=== PATIENT | female | born 1940 | race Caucasian/White ===

== ENCOUNTER 2017-01-08 12:45 | Emergency (ER) | payer MEDICARE, OTHER ==
[2017-01-08 13:13] LABS: BASOPHILS 0.7 % (0.0-2.0); EOSINOPHILS 2.1 % (0.0-6.0); EOSINOPHILS# 0.1 X 10^3uL (0.0-0.4); HEMATOCRIT 45.7 % (36.0-48.0); HEMOGLOBIN 15.9 g/dL (12.0-16.0); LYMPHOCYTES# 1.4 X 10^3uL (0.8-3.8); MEAN CELL VOLUME 89.9 fL (80.0-100.0); MEAN CORPUS. HGB CONCENTRATION 34.9 g/dL (32.0-36.0); MEAN CORPUSCULAR HEMOGLOBIN 31.4 pg (29.0-35.0); MEAN PLATELET VOLUME 8.4 fL (7.4-10.4); MONOCYTES 8.7 % (2.0-10.0); MONOCYTES# 0.5 X 10^3uL (0.2-1.0); NEUTROPHILS 64.5 % (54.0-75.0); NEUTROPHILS# 3.9 X 10^3uL (2.6-6.7); PLATELET COUNT 274 X 10^3uL (130-440); RED BLOOD COUNT 5.08 X 10^6uL (4.20-6.10); RED CELL DISTRIBUTION WIDTH 11.7 % (11.5-14.5); WHITE BLOOD COUNT 5.9 X 10^3uL (3.9-10.7)
[2017-01-08 13:24] LABS: BLOOD UREA NITROGEN 21 mg/dL (7-17); CALCIUM 9.2 mg/dL (8.4-10.2); CHLORIDE 105 mmol/L (98-107); EST GLOMERULAR FILTRATION RATE > 60 mL/min; GLUCOSE 100 mg/dL (70-100); INR 1.9; POTASSIUM 4.1 mmol/L (3.5-5.1); SODIUM 143 mmol/L (137-145)
[2017-01-08 13:49] LABS: TROPONIN I < 0.012 ng/mL (0.00-0.034)
--- NOTE | 2017-01-08 14:31 | ER PHYSICIAN DOCUMENTATION ---
Physician Documentation [facility] Name:Beverly Hardy Age:76 yrs Sex:Female :1940 Arrival Date:01/08/2017 Time:12:45 BedTrauma-C Private MD:Brea Avila ED Pawan Hicks Disposition: 01/08 15:00 Chart complete. tl1 Disposition: 01/08/17 14:22 Discharged to Home/Self Care. Impression: Non-Cardiac Chest Pain. - Condition is Good. - Discharge Instructions: CHEST PAIN, Uncertain Cause. - Medical Reconciliation form form. - Follow up: Brea Avila MD; When: 4- 6 days; Reason: Recheck today's complaints, Continuance of care. - Problem is new. - Symptoms have improved. HPI: 13:00 This 76 yrs old Female presents to ER via Private Vehicle with complaints of tl1 Back Pain. 13:00 The patient presents with pain that is acute. tl1 13:51 She was fine until an hour [employer] when she developed the abrupt onset of a sharp pain in tl1 the left lower scapular area of her chest that was not pleuritic and did not radiate. This lasted about 15 minutes and resolved, but it was bad enough that it concerned her enough to come to the ED. On arrival here she was pain free, though she still had a very vague sense of some kind of residual discomfort that she found very hard to describe. She denied f/c/s. No cough or hemoptysis. No recent trauma or injury. No urinary symptoms. No change in the pain when she moves her neck. No n/v or diaphoresis.. Historical: - Allergies: No known drug Allergies; - Home Meds: 1. Coumadin Oral - Tetanus: < 10 years. - Ebola Screening: : Patient negative for fever greater than or equal to 101.5 degrees Fahrenheit, and additional compatible Ebola Virus Disease symptoms. Patient denies exposure to infectious person. Patient denies travel to an Ebola-affected area in the 21 days before illness onset. No symptoms or risks identified at this time. . - Immunization history: Flu Vaccine Flu Vaccine < 1 year. - Social history: Smoking status: Smoking status: Patient states was never smoker of tobacco. ROS: 13:20 Back: Positive for pain at rest, pain with movement. tl1 13:20 All other systems are negative. Exam: 13:20 Constitutional: This is a well developed, well nourished patient who is awake, alert, tl1 and in no acute distress. Head/Face: Normocephalic, atraumatic. Eyes: Pupils equal round and reactive to light, extra-ocular motions intact. Lids and lashes normal. Conjunctiva and sclera are non-icteric and not injected. Cornea within normal limits. Periorbital areas with no swelling, redness, or edema. ENT: Nares patent. No nasal discharge, no septal abnormalities noted. Tympanic membranes are normal and external auditory canals are clear. Oropharynx with no redness, swelling, or masses, exudates, or evidence of obstruction, uvula midline. Mucous membranes moist. 13:20 Neck: Trachea midline, no thyromegaly or masses palpated, and no cervical tl1 lymphadenopathy. Supple, full range of motion without nuchal rigidity, or vertebral point tenderness. No Meningismus. 13:20 Chest/axilla: Inspection: normal, Palpation: tenderness, that is mild, of the right lateral posterior chest, that does not reproduce the patient's complaints. 13:20 Cardiovascular: Rate: normal, Rhythm: regular, Heart sounds: normal, Edema: is not appreciated, JVD: is not appreciated. 13:20 Respiratory: Respirations: normal, Breath sounds: are normal. 13:20 Abdomen/GI: Palpation: abdomen is soft and non-tender. 13:20 Back: pain, is absent, ROM is normal, vertebral tenderness, is not appreciated, muscle spasm, is not present. 13:20 Skin: Exam negative for 13:20 Skin: Exam negative for rash. 13:20 Neuro: Exam negative for acute changes. Vital Signs: 12:50 BP 153 / 56; Pulse 59; Resp 20; Temp 98.7; Pulse Ox 97% on R/A; Pain 6/10; rh 13:46 BP 114 / 61 (auto/); rh 13:46 Pulse 56 MON; Resp 17; Pulse Ox 92% ; rh 14:24 BP 105 / 56; Pulse 56; Resp 16; Pulse Ox 92% on R/A; Pain 0/10; rh MDM: 12:47 Patient medically screened. tl1 13:05 ECG:. tl1 14:30 Data reviewed: vital signs, nurses notes, old medical records, lab test result(s), EKG, tl1 radiologic studies, plain films, and as a result, I will discharge patient. Test interpretation: by ED physician or midlevel provider: plain radiologic studies, ECG. Counseling: I had a detailed discussion with the patient and/or guardian regarding: the historical points, exam findings, and any diagnostic results supporting the discharge/admit diagnosis, lab results, radiology results, the need for outpatient follow up, to return to the emergency department if symptoms worsen or persist or if there are any questions or concerns that arise at home. Response to treatment: There is no appreciated change of the patient's symptoms at this time, no change in mental status, and as a result, I will discharge patient. ED course: The cause of this pain is obscure, but does not appear to be due to a worrisome emergency medical condition at this time. 15:09 EKG attached 01/08 13:19 Order name: CBC AUTO DIF, MDIF/RMOR IF IND; Complete Time: 14: [facility] 01/08 14:21 Interpretation: Normal: WHITE BLOOD COUNT 5.9; HEMOGLOBIN 15.9; HEMATOCRIT 45.7; tl1 PLATELET COUNT 274. 01/08 13:25 Order name: PROTIME/INR; Complete Time: 14:22 [facility] 01/08 14:21 Interpretation: Abnormal: PROTIME 24.0; INR 1.9. [facility] 01/08 13:29 Order name: BASIC METABOLIC PANEL; Complete Time: 14:22 [facility] 01/08 14:21 Interpretation: SODIUM 143; POTASSIUM 4.1; CHLORIDE 105; CARBON DIOXIDE 27; GLUCOSE tl1 100; BLOOD UREA NITROGEN 21; CREATININE 0.9; EST GLOMERULAR FILTRATION RATE > 60; CALCIUM 9.2. 01/08 13:29 Order name: MAGNESIUM; Complete Time: 14:22 [facility] 01/08 14:21 Interpretation: Normal: MAGNESIUM 2.0. [facility] 01/08 13:49 Order name: TROPONIN I; Complete Time: 14:22 [facility] 01/08 14:22 Interpretation: Normal: TROPONIN I < 0.012. [facility] 01/09 06:59 Order name: CHEST; [place]ING[place] [id number] [facility] 01/08 13:01 Order name: 12-lead EKG; Complete Time: 13:06 01/08 13:01 Order name: Iv Saline Lock; Complete Time: : 01/08 13:01 Order name: Place Patient On Monitor; Complete Time: 01/08 13: Order name: Pulse Ox Continuous; Complete Time: EC:53 Rate is 62 beats/min. Rhythm is regular. QRS [place] is Normal. TX interval is normal at tl1 134 msec. QRS interval is normal at 75 msec. QT interval is normal at 436 msec. No Q waves. T waves are Normal. No ST changes noted. Clinical impression: Normal ECG. Interpreted by me. Reviewed by me. Dispensed Medications: No medications were administered Signatures: Julisa Simpson RN RN Pawan Hicks MD MD tl1 [facility]
--- NOTE | 2017-01-08 14:31 | ER NURSING DOCUMENTATION ---
Nurse's Notes [facility] Name:Beverly Hardy Age:76 yrs Sex:Female :1940 Arrival Date:01/08/2017 Time:12:45 BedTrauma-C Private MD:Brea Avila Diagnosis:Non-Cardiac Chest Pain Presentation: 01/08 12:47 Acuity: MAMTA 2 rh 12:50 Presenting complaint: Patient states: pain in R shoulder blade. Transition of care: cb Home. 12:50 Method Of Arrival: Private Vehicle cb Triage Assessment: 12:50 General: Appears in no apparent distress, well groomed, Behavior is cooperative. cb 12:50 Pain: Denies pain. Complains of pain in right subscapular area Pain radiates to cb thoracic area Pain At worst was 8 out of 10 on a pain scale. EENT: No deficits noted. Neuro: Level of Consciousness is awake, alert, Oriented to person, place, time, event. Cardiovascular: Rhythm is regular. Respiratory: Airway is patent Trachea midline Respiratory effort is even, unlabored, Respiratory pattern is regular, symmetrical, Breath sounds are clear bilaterally. GI: Abdomen is flat, non- distended Bowel sounds present X 4 quads. Reports normal bowel habits, tolerance of fluids, tolerance of food. : No deficits noted. Derm: No deficits noted. Musculoskeletal: No deficits noted. Historical: - Allergies: No known drug Allergies; - Home Meds: 1. Coumadin Oral - Tetanus: < 10 years. - Ebola Screening: : Patient negative for fever greater than or equal to 101.5 degrees Fahrenheit, and additional compatible Ebola Virus Disease symptoms. Patient denies exposure to infectious person. Patient denies travel to an Ebola-affected area in the 21 days before illness onset. No symptoms or risks identified at this time. . - Immunization history: Flu Vaccine Flu Vaccine < 1 year. - Social history: Smoking status: Smoking status: Patient states was never smoker of tobacco. Screenin:49 Infectious Disease Risk None. Abuse screen: Denies threats or abuse. Denies injuries cb from another. Nutritional screening: No deficits noted. Vital Signs: 12:50 BP 153 / 56; Pulse 59; Resp 20; Temp 98.7; Pulse Ox 97% on R/A; Pain 6/10; rh 13:46 BP 114 / 61 (auto/); rh 13:46 Pulse 56 MON; Resp 17; Pulse Ox 92% ; rh 14:24 BP 105 / 56; Pulse 56; Resp 16; Pulse Ox 92% on R/A; Pain 0/10; rh ED Course: 12:47 Patient arrived in ED. ma1 12:47 Brea Avila MD is Private Physician. ma1 12:47 Negrita Gutierrez is Primary Nurse. rh 12:47 Triage completed. rh 12:50 Julisa Simpson RN is Primary Nurse. cb 12:50 Valuables Remains with patient Patient has correct armband on for positive cb identification. Placed in gown. Bed in low position. Call light in reach. media monitor on. Pulse ox on. NIBP on. 12:50 Diet: Patient is NPO. cb 12:52 EKG done. (by ED staff). Reviewed by Pawan Hicks MD. cb 13:04 Pawan Hicks MD is Attending Physician. tl1 13:05 Inserted peripheral IV: 20 gauge in right forearm and blood collected. cb 13:05 Labs drawn. (by ED staff). Sent per order to lab. cb 13:48 Missed attempts: 20 gauge X 2 in right antecubital area, Bleeding controlled, band aid rh applied, catheter tip intact. 14:22 Brea Avila MD is Referral Physician. tl1 15:09 EKG attached cb Administered Medications: No medications were administered Outcome: 14:22 Discharge ordered by . tl1 14:24 Discharged to home ambulatory. rh 14:24 Condition: improved 14:24 Discharge Assessment: Patient awake, alert and oriented x 3. No cognitive and/or functional deficits noted. Patient verbalized understanding of disposition instructions. 14:24 Discharge instructions given to patient, Instructed on discharge instructions, follow up and referral plans. Demonstrated understanding of instructions. 14:31 Patient left the ED. 06 10:11 Discharge F/U Call: Spoke with: patient. Are you having any pain? no. Have you made a lp f/u appointment? yes Signatures: Julisa Simpson, Genia Beckman RN, cb, RN RN lp Leigh, Tom, MD MD tl1 Negrita Gutierrez [facility]se Gu[facility]
--- NOTE | 2017-01-09 05:43 | RADIOLOGY REPORT ---
A limited single portable view of the chest demonstrates the heart, vessels and lungs to be unremarkable. No infiltrate, fluid or pneumothorax is seen. IMPRESSION: Unremarkable limited single portable view of the chest. MTDD
== END 2017-01-08 14:31 | disposition home or self-care (01) ==
LOC: ER 12:45
DX: R07.89 Other chest pain (principal); M54.9 Dorsalgia, unspecified; Z79.01 Long term (current) use of anticoagulants
CPT/HCPCS: 71010; 80048; 83735; 84484; 85025; 85610; 93005; 99284